=== PATIENT | female | born 1990 | race Two or more races ===

== ENCOUNTER 2024-07-04 06:16 | Day surgery (SDC) | payer BC, SELFPAY | END 2024-07-04 11:44 | disposition home or self-care (01) | LOC: GI 06:16 | PROVIDERS: ATTENDING PHYSICIAN Internal Medicine Gastroenterology | DX: D50.0 Iron deficiency anemia secondary to blood loss (chronic) (principal); R12 Heartburn; K44.9 Diaphragmatic hernia without obstruction or gangrene; K31.7 Polyp of stomach and duodenum; K22.89 Other specified disease of esophagus; K86.89 Other specified diseases of pancreas | CPT/HCPCS: 45378; 43239; 88305 ==